=== PATIENT | female | born 1960 | race Caucasian/White ===

== ENCOUNTER → 2023-12-13 07:05 | Outpatient (REF) | payer OTHER, SELFPAY ==
[2023-12-13 08:19] LABS: % Basophils 0.3 % (0-2); % Eosinophils 0.9 % (0-6); % Immature Granulocytes 0.2 % (0-0.5); % Lymphocytes 16.1 % (20.5-51.1); % Monocytes 3.3 % (1.7-9.3); % Neutrophils 79.2 % (42.2-75.2); Absolute Eosinophils 0.1 10^3/uL (0-0.7); Absolute Lymphocytes 1.1 10^3/uL (1.2-3.4); Absolute Monocytes 0.2 10^3/uL (0.1-0.6); Absolute Neutrophils 5.3 10^3/uL (1.4-6.5); Hematocrit 47.3 % (37.0-47.0); Hemoglobin 16.2 g/dL (12.0-16.0); Mean Corp Hgb Conc. 34.2 g/dL (33.0-37.0); Mean Corpuscular Volume 90.4 fL (81.0-99.0); Mean Platelet Volume 9.4 fL (7.4-10.4); Nucleated Red Blood Cells % 0 %; Platelet Count 269 10^3/uL (130-400); Red Blood Cell Count 5.23 10^6/uL (4.20-5.40); Red Cell Dist. Width 12.5 % (11.5-14.5); White Blood Cell Count 6.7 10^3/uL (4.8-10.8)
[2023-12-13 08:46] LABS: ALT (SGPT) 29 U/L (0-35); AST (SGOT) 29 U/L (14-36); Albumin 4.8 g/dl (3.5-5.0); Alkaline Phosphatase 101 U/L (38-126); Blood Urea Nitrogen 11 mg/dl (7-17); Calcium 9.9 mg/dl (8.4-10.2); Carbon Dioxide 27 mmol/L (22-30); Chloride 102 mmol/L (98-107); Glucose 114 mg/dl (70-99); Potassium 3.7 mmol/L (3.5-5.1); Sodium 138 mmol/L (135-145); Total Bilirubin 2.6 mg/dl (0.2-1.3); Total Protein 7.4 g/dl (6.3-8.2); eGFR > 60.00
[2023-12-15 16:48] LABS: Beta-2-Microglobulin 2.1 mg/L (<=3.0)
[2023-12-17 14:17] LABS: Albumin 4.69 g/dL (3.75-5.01); Alpha 2 Globulin 0.69 g/dL (0.48-1.05); Free Lambda Light Chains,Quant 7.33 mg/L (5.71-26.30); IgA 217 mg/dL (68-408); IgG 618 mg/dL (768-1632); IgM 19 mg/dL (35-263); Immunofixation Electrophoresis IFE Done; Kappa/Lambda Fr Light Ratio 1.47 (0.26-1.65); Total Protein-Electrophoresis 7.3 g/dL (6.3-8.2)
== END ==
LOC: REG 07:05
PROVIDERS: ATTENDING PHYSICIAN Internal Medicine Hematology & Oncology; FAMILY PHYSICIAN Internal Medicine; REFERRING PHYSICIAN Internal Medicine Hematology & Oncology
DX: C90.01 Multiple myeloma in remission (principal); D80.1 Nonfamilial hypogammaglobulinemia
CPT/HCPCS: 36415; 80053; 82232; 82784; 83521; 84155; 84165; 85025; 86334

== ENCOUNTER → 2023-12-20 09:27 | Outpatient (REF) | payer OTHER, SELFPAY ==
[2023-12-20 10:41] LABS: ALT (SGPT) 57 U/L (0-35); AST (SGOT) 38 U/L (14-36); Albumin 3.7 g/dl (3.5-5.0); Alkaline Phosphatase 76 U/L (38-126); Blood Urea Nitrogen 10 mg/dl (7-17); Calcium 9.5 mg/dl (8.4-10.2); Carbon Dioxide 32 mmol/L (22-30); Chloride 98 mmol/L (98-107); Glucose 88 mg/dl (70-99); Potassium 2.6 mmol/L (3.5-5.1); Sodium 139 mmol/L (135-145); Total Bilirubin 1.5 mg/dl (0.2-1.3); Total Protein 5.8 g/dl (6.3-8.2); eGFR > 60.00
== END ==
LOC: REG 09:27
PROVIDERS: ATTENDING PHYSICIAN Internal Medicine Hematology & Oncology; FAMILY PHYSICIAN Internal Medicine Hematology & Oncology
DX: C90.01 Multiple myeloma in remission (principal); D80.1 Nonfamilial hypogammaglobulinemia
CPT/HCPCS: 36415; 80053

== ENCOUNTER → 2024-01-01 14:20 | Outpatient (REF) | payer OTHER, SELFPAY | LOC: WDC 14:20 | PROVIDERS: ATTENDING PHYSICIAN Obstetrics & Gynecology Gynecology | DX: Z12.31 Encounter for screening mammogram for malignant neoplasm of breast (principal) | CPT/HCPCS: 77063; 77067 ==

== ENCOUNTER → 2024-03-13 08:10 | Outpatient (REF) | payer OTHER, SELFPAY ==
[2024-03-13 09:04] LABS: % Basophils 0.5 % (0-2); % Eosinophils 1.2 % (0-6); % Immature Granulocytes 0.3 % (0-0.5); % Lymphocytes 39.6 % (20.5-51.1); % Monocytes 9.7 % (1.7-9.3); % Neutrophils 48.7 % (42.2-75.2); Absolute Eosinophils 0.1 10^3/uL (0-0.7); Absolute Lymphocytes 2.3 10^3/uL (1.2-3.4); Absolute Monocytes 0.6 10^3/uL (0.1-0.6); Absolute Neutrophils 2.9 10^3/uL (1.4-6.5); Hematocrit 45.1 % (37.0-47.0); Hemoglobin 14.9 g/dL (12.0-16.0); Mean Corpuscular Hgb 30.5 pg (27.0-31.0); Mean Corpuscular Volume 92.4 fL (81.0-99.0); Mean Platelet Volume 9.4 fL (7.4-10.4); Nucleated Red Blood Cells % 0 %; Platelet Count 250 10^3/uL (130-400); Red Blood Cell Count 4.88 10^6/uL (4.20-5.40); Red Cell Dist. Width 12.7 % (11.5-14.5); White Blood Cell Count 5.9 10^3/uL (4.8-10.8)
[2024-03-13 09:48] LABS: ALT (SGPT) 20 U/L (0-35); AST (SGOT) 24 U/L (14-36); Albumin 4.3 g/dl (3.5-5.0); Alkaline Phosphatase 141 U/L (38-126); Blood Urea Nitrogen 21 mg/dl (7-17); Calcium 10.1 mg/dl (8.4-10.2); Carbon Dioxide 26 mmol/L (22-30); Chloride 103 mmol/L (98-107); Glucose 127 mg/dl (70-99); Potassium 4.2 mmol/L (3.5-5.1); Sodium 139 mmol/L (135-145); Total Bilirubin 1.3 mg/dl (0.2-1.3); Total Protein 6.6 g/dl (6.3-8.2); eGFR > 60.00
[2024-03-14 23:57] LABS: Beta-2-Microglobulin 1.9 mg/L (<=3.0)
== END ==
LOC: REG 08:10
PROVIDERS: ATTENDING PHYSICIAN Internal Medicine Hematology & Oncology
DX: C90.01 Multiple myeloma in remission (principal); D80.1 Nonfamilial hypogammaglobulinemia; E87.6 Hypokalemia
CPT/HCPCS: 36415; 80053; 82232; 82784; 83521; 84155; 84165; 85025; 86334

== ENCOUNTER → 2024-04-17 12:15 | Outpatient (REF) | payer OTHER, SELFPAY | LOC: RAD 12:15 | PROVIDERS: ATTENDING PHYSICIAN Nurse Practitioner Primary Care; FAMILY PHYSICIAN Internal Medicine | DX: C90.01 Multiple myeloma in remission (principal); D80.1 Nonfamilial hypogammaglobulinemia; E87.6 Hypokalemia | CPT/HCPCS: 77075 ==

== ENCOUNTER → 2024-05-12 16:05 | Outpatient (REF) | payer OTHER, SELFPAY | LOC: RAD 16:05 | PROVIDERS: ATTENDING PHYSICIAN Nurse Practitioner Family; FAMILY PHYSICIAN Internal Medicine | DX: M25.531 Pain in right wrist (principal) | CPT/HCPCS: 73110 ==

== ENCOUNTER → 2024-07-17 07:49 | Outpatient (REF) | payer OTHER, SELFPAY ==
[2024-07-17 08:56] LABS: Urine Albumin Negative (Neg - Trace); Urine Bilirubin Negative (Negative); Urine Character Clear (Clear); Urine Color Yellow; Urine Glucose Negative (Negative); Urine Ketone Negative (Negative); Urine Leukocyte Trace (Negative); Urine Nitrite Negative (Negative); Urine Occult Blood 1+ (Negative); Urine Urobilinogen Negative (Neg - 1+)
[2024-07-17 09:02] LABS: % Basophils 0.8 % (0-2); % Eosinophils 3.1 % (0-6); % Immature Granulocytes 0.5 % (0-0.5); % Lymphocytes 34.2 % (20.5-51.1); % Monocytes 9.5 % (1.7-9.3); % Neutrophils 51.9 % (42.2-75.2); Absolute Basophils 0.1 10^3/uL (0-0.2); Absolute Eosinophils 0.2 10^3/uL (0-0.7); Absolute Lymphocytes 2.2 10^3/uL (1.2-3.4); Absolute Monocytes 0.6 10^3/uL (0.1-0.6); Absolute Neutrophils 3.3 10^3/uL (1.4-6.5); Hematocrit 44.9 % (37.0-47.0); Hemoglobin 14.8 g/dL (12.0-16.0); Mean Corpuscular Hgb 30.2 pg (27.0-31.0); Mean Corpuscular Volume 91.6 fL (81.0-99.0); Mean Platelet Volume 9.5 fL (7.4-10.4); Nucleated Red Blood Cells % 0 %; Platelet Count 257 10^3/uL (130-400); Red Cell Dist. Width 13.2 % (11.5-14.5); White Blood Cell Count 6.4 10^3/uL (4.8-10.8)
[2024-07-17 09:32] LABS: Urine Bacteria Few (Negative); Urine Red Blood Cell 0-2 /HPF (0-2); Urine White Cell 0-2 /HPF (0-5)
[2024-07-17 09:49] LABS: Vitamin D, 25-OH*** 41.2 ng/mL (30-80)
[2024-07-17 10:03] LABS: TSH 1.56 uIU/ml (0.47-4.68)
[2024-07-17 10:10] LABS: Free T4 1.37 ng/dl (0.78-2.19)
[2024-07-17 10:46] LABS: ALT (SGPT) 27 U/L (0-35); AST (SGOT) 27 U/L (14-36); Albumin 4.5 g/dl (3.5-5.0); Alkaline Phosphatase 153 U/L (38-126); Blood Urea Nitrogen 12 mg/dl (7-17); Calcium 9.8 mg/dl (8.4-10.2); Carbon Dioxide 27 mmol/L (22-30); Chloride 102 mmol/L (98-107); Glucose 82 mg/dl (70-99); HDL Cholesterol 73 mg/dl; LDL Cholesterol, Calculated 129 mg/dl; Potassium 4.4 mmol/L (3.5-5.1); Sodium 142 mmol/L (135-145); Total Bilirubin 1.1 mg/dl (0.2-1.3); Total Cholesterol 225 mg/dl (50-199); Total Protein 6.6 g/dl (6.3-8.2); Triglyceride 115 mg/dl (10-149); Very Low Density Lipoprotein 23 mg/dl (0-30); eGFR > 60.00
[2024-07-19 04:57] LABS: Beta-2-Microglobulin 2.2 mg/L (<=3.0)
== END ==
LOC: REG 07:49
PROVIDERS: ATTENDING PHYSICIAN Internal Medicine Hematology & Oncology; FAMILY PHYSICIAN Internal Medicine
DX: C90.01 Multiple myeloma in remission (principal); D80.1 Nonfamilial hypogammaglobulinemia; E87.6 Hypokalemia; E55.9 Vitamin D deficiency, unspecified; K21.9 Gastro-esophageal reflux disease without esophagitis; M81.0 Age-related osteoporosis without current pathological fracture; E83.52 Hypercalcemia; E78.2 Mixed hyperlipidemia; Z79.1 Long term (current) use of non-steroidal anti-inflammatories (NSAID)
CPT/HCPCS: 36415; 80053; 80061; 81003; 81015; 82232; 82306; 82784; 83521; 84155; 84165; 84439; 84443; 85025; 86334

== ENCOUNTER → 2024-09-12 12:00 | Outpatient (REF) | payer OTHER, MEDICARE, SELFPAY | LOC: DHSLP 12:00 | PROVIDERS: ATTENDING PHYSICIAN Internal Medicine | DX: G47.33 Obstructive sleep apnea (adult) (pediatric) (principal) | CPT/HCPCS: 95800 ==

== ENCOUNTER → 2024-10-09 13:13 | Outpatient (REF) | payer MEDICARE, OTHER, SELFPAY ==
[2024-10-09 14:37] LABS: % Basophils 0.6 % (0-2); % Eosinophils 1.5 % (0-6); % Immature Granulocytes 0.1 % (0-0.5); % Lymphocytes 34.6 % (20.5-51.1); % Neutrophils 55.2 % (42.2-75.2); Absolute Eosinophils 0.1 10^3/uL (0-0.7); Absolute Lymphocytes 2.5 10^3/uL (1.2-3.4); Absolute Monocytes 0.6 10^3/uL (0.1-0.6); Hematocrit 46.5 % (37.0-47.0); Hemoglobin 15.3 g/dL (12.0-16.0); Mean Corp Hgb Conc. 32.9 g/dL (33.0-37.0); Mean Corpuscular Hgb 30.5 pg (27.0-31.0); Mean Corpuscular Volume 92.8 fL (81.0-99.0); Nucleated Red Blood Cells % 0 %; Platelet Count 242 10^3/uL (130-400); Red Blood Cell Count 5.01 10^6/uL (4.20-5.40); Red Cell Dist. Width 12.9 % (11.5-14.5); White Blood Cell Count 7.2 10^3/uL (4.8-10.8)
[2024-10-09 15:23] LABS: ALT (SGPT) 25 U/L (0-35); AST (SGOT) 27 U/L (14-36); Albumin 4.8 g/dl (3.5-5.0); Alkaline Phosphatase 126 U/L (38-126); Blood Urea Nitrogen 13 mg/dl (7-17); Calcium 9.9 mg/dl (8.4-10.2); Carbon Dioxide 30 mmol/L (22-30); Chloride 101 mmol/L (98-107); Glucose 78 mg/dl (70-99); Potassium 4.6 mmol/L (3.5-5.1); Sodium 142 mmol/L (135-145); Total Bilirubin 1.4 mg/dl (0.2-1.3); Total Protein 7.4 g/dl (6.3-8.2); eGFR > 60.00
[2024-10-12 02:57] LABS: Beta-2-Microglobulin 1.8 mg/L (<=3.0)
== END ==
LOC: REG 13:13
PROVIDERS: ATTENDING PHYSICIAN Internal Medicine Hematology & Oncology; FAMILY PHYSICIAN Internal Medicine
DX: C90.10 Plasma cell leukemia not having achieved remission (principal); D80.1 Nonfamilial hypogammaglobulinemia; E87.6 Hypokalemia
CPT/HCPCS: 36415; 80053; 82232; 82784; 83521; 84155; 84165; 85025; 86334

== ENCOUNTER → 2024-12-10 10:45 | Outpatient (REF) | payer MEDICARE, OTHER, SELFPAY ==
[2024-12-10 11:20] LABS: % Basophils 0.9 % (0-2); % Eosinophils 3.6 % (0-6); % Immature Granulocytes 0.4 % (0-0.5); % Lymphocytes 36.1 % (20.5-51.1); % Monocytes 9.5 % (1.7-9.3); % Neutrophils 49.5 % (42.2-75.2); Absolute Basophils 0.1 10^3/uL (0-0.2); Absolute Eosinophils 0.2 10^3/uL (0-0.7); Absolute Monocytes 0.5 10^3/uL (0.1-0.6); Absolute Neutrophils 2.8 10^3/uL (1.4-6.5); Hematocrit 48.6 % (37.0-47.0); Hemoglobin 16.2 g/dL (12.0-16.0); Mean Corp Hgb Conc. 33.3 g/dL (33.0-37.0); Mean Corpuscular Hgb 30.4 pg (27.0-31.0); Mean Corpuscular Volume 91.2 fL (81.0-99.0); Mean Platelet Volume 9.2 fL (7.4-10.4); Nucleated Red Blood Cells % 0 %; Platelet Count 236 10^3/uL (130-400); Red Blood Cell Count 5.33 10^6/uL (4.20-5.40); Red Cell Dist. Width 12.9 % (11.5-14.5); White Blood Cell Count 5.6 10^3/uL (4.8-10.8)
[2024-12-10 15:06] LABS: ALT (SGPT) 25 U/L (0-35); AST (SGOT) 26 U/L (14-36); Albumin 5.2 g/dl (3.5-5.0); Alkaline Phosphatase 144 U/L (38-126); Blood Urea Nitrogen 15 mg/dl (7-17); Calcium 10.3 mg/dl (8.4-10.2); Carbon Dioxide 26 mmol/L (22-30); Chloride 100 mmol/L (98-107); Glucose 94 mg/dl (70-99); Potassium 4.9 mmol/L (3.5-5.1); Sodium 137 mmol/L (135-145); Total Bilirubin 1.6 mg/dl (0.2-1.3); Total Protein 7.5 g/dl (6.3-8.2); eGFR > 60.00
== END ==
LOC: REG 10:45
PROVIDERS: ATTENDING PHYSICIAN Internal Medicine Hematology & Oncology; FAMILY PHYSICIAN Internal Medicine
DX: C90.01 Multiple myeloma in remission (principal); D80.1 Nonfamilial hypogammaglobulinemia; E87.6 Hypokalemia
CPT/HCPCS: 36415; 80053; 82232; 82784; 83521; 84155; 84165; 85025; 86334

== ENCOUNTER → 2025-01-07 10:37 | Outpatient (REF) | payer MEDICARE, OTHER, SELFPAY | LOC: WDC 10:37 | PROVIDERS: ATTENDING PHYSICIAN Obstetrics & Gynecology Gynecology | DX: Z12.31 Encounter for screening mammogram for malignant neoplasm of breast (principal) | CPT/HCPCS: 77063; 77067 ==

== ENCOUNTER → 2025-03-11 11:43 | Outpatient (REF) | payer MEDICARE, OTHER, SELFPAY ==
[2025-03-11 12:30] LABS: % Basophils 0.9 % (0-2); % Eosinophils 4.1 % (0-6); % Immature Granulocytes 0.2 % (0-0.5); % Lymphocytes 32.8 % (20.5-51.1); % Monocytes 9.6 % (1.7-9.3); % Neutrophils 52.4 % (42.2-75.2); Absolute Basophils 0.1 10^3/uL (0-0.2); Absolute Eosinophils 0.2 10^3/uL (0-0.7); Absolute Lymphocytes 1.8 10^3/uL (1.2-3.4); Absolute Monocytes 0.5 10^3/uL (0.1-0.6); Absolute Neutrophils 2.9 10^3/uL (1.4-6.5); Hematocrit 45.9 % (37.0-47.0); Hemoglobin 15.3 g/dL (12.0-16.0); Mean Corp Hgb Conc. 33.3 g/dL (33.0-37.0); Mean Corpuscular Hgb 30.7 pg (27.0-31.0); Mean Platelet Volume 9.4 fL (7.4-10.4); Nucleated Red Blood Cells % 0 %; Platelet Count 283 10^3/uL (130-400); Red Blood Cell Count 4.99 10^6/uL (4.20-5.40); White Blood Cell Count 5.6 10^3/uL (4.8-10.8)
[2025-03-11 12:59] LABS: ALT (SGPT) 23 U/L (0-35); AST (SGOT) 22 U/L (14-36); Albumin 4.1 g/dl (3.5-5.0); Alkaline Phosphatase 110 U/L (38-126); Blood Urea Nitrogen 13 mg/dl (7-17); Calcium 9.9 mg/dl (8.4-10.2); Carbon Dioxide 31 mmol/L (22-30); Chloride 105 mmol/L (98-107); Glucose 92 mg/dl (70-99); Potassium 4.7 mmol/L (3.5-5.1); Sodium 140 mmol/L (135-145); Total Bilirubin 1.1 mg/dl (0.2-1.3); Total Protein 6.6 g/dl (6.3-8.2); eGFR > 60.00
== END ==
LOC: REG 11:43
PROVIDERS: ATTENDING PHYSICIAN Internal Medicine Hematology & Oncology; FAMILY PHYSICIAN Internal Medicine
DX: C90.01 Multiple myeloma in remission (principal); D80.1 Nonfamilial hypogammaglobulinemia; E87.6 Hypokalemia
CPT/HCPCS: 36415; 80053; 82232; 82784; 83521; 84155; 84165; 85025; 86334

== ENCOUNTER → 2025-05-15 08:16 | Outpatient (REF) | payer MEDICARE, OTHER, SELFPAY ==
[2025-05-15 09:11] LABS: Hematocrit 47.0 % (37.0-47.0); Hemoglobin 15.8 g/dL (12.0-16.0); Mean Corp Hgb Conc. 33.6 g/dL (33.0-37.0); Mean Corpuscular Volume 91.1 fL (81.0-99.0); Nucleated Red Blood Cells % 0 %; Platelet Count 239 10^3/uL (130-400); Red Cell Dist. Width 13.2 % (11.5-14.5)
[2025-05-15 09:37] LABS: ALT (SGPT) 20 U/L (0-35); AST (SGOT) 19 U/L (14-36); Albumin 4.6 g/dl (3.5-5.0); Alkaline Phosphatase 84 U/L (38-126); Blood Urea Nitrogen 19 mg/dl (7-17); Calcium 9.7 mg/dl (8.4-10.2); Carbon Dioxide 26 mmol/L (22-30); Chloride 108 mmol/L (98-107); Glucose 70 mg/dl (70-99); Potassium 4.4 mmol/L (3.5-5.1); Sodium 140 mmol/L (135-145); Total Protein 6.9 g/dl (6.3-8.2); eGFR > 60.00
[2025-05-19 22:05] LABS: Albumin 4.35 g/dL (3.75-5.01); Free Kappa Light Chains,Quant 9.41 mg/L (3.30-19.40); Free Lambda Light Chains,Quant 5.87 mg/L (5.71-26.30); Immunofixation Electrophoresis IFE Done; Kappa/Lambda Fr Light Ratio 1.60 (0.26-1.65); Total Protein-Electrophoresis 6.6 g/dL (6.3-8.2)
== END ==
LOC: REG 08:16
PROVIDERS: ATTENDING PHYSICIAN Internal Medicine Hematology & Oncology; FAMILY PHYSICIAN Internal Medicine; REFERRING PHYSICIAN Internal Medicine Hematology & Oncology
DX: C90.01 Multiple myeloma in remission (principal); D80.1 Nonfamilial hypogammaglobulinemia; E87.6 Hypokalemia
CPT/HCPCS: 36415; 80053; 82784; 83521; 84155; 84165; 85025; 86334

== ENCOUNTER → 2025-09-02 07:44 | Outpatient (REF) | payer MEDICARE, OTHER, SELFPAY ==
[2025-09-02 08:13] LABS: Hematocrit 44.4 % (37.0-47.0); Hemoglobin 14.5 g/dL (12.0-16.0); Mean Corp Hgb Conc. 32.7 g/dL (33.0-37.0); Mean Corpuscular Volume 95.5 fL (81.0-99.0); Nucleated Red Blood Cells % 0 %; Platelet Count 298 10^3/uL (130-400); Red Cell Dist. Width 12.3 % (11.5-14.5)
[2025-09-02 08:56] LABS: ALT (SGPT) 28 U/L (0-35); AST (SGOT) 22 U/L (14-36); Albumin 4.1 g/dl (3.5-5.0); Alkaline Phosphatase 82 U/L (38-126); Blood Urea Nitrogen 10 mg/dl (7-17); Calcium 9.6 mg/dl (8.4-10.2); Carbon Dioxide 30 mmol/L (22-30); Chloride 102 mmol/L (98-107); Glucose 125 mg/dl (70-99); Potassium 3.6 mmol/L (3.5-5.1); Sodium 140 mmol/L (135-145); Total Protein 6.7 g/dl (6.3-8.2); eGFR > 60.00
== END ==
LOC: REG 07:44
PROVIDERS: ATTENDING PHYSICIAN Internal Medicine Hematology & Oncology; FAMILY PHYSICIAN Internal Medicine
DX: C90.01 Multiple myeloma in remission (principal); E80.1 Porphyria cutanea tarda; E87.6 Hypokalemia
CPT/HCPCS: 36415; 80053; 82784; 83521; 84155; 84165; 85025; 86334